=== PATIENT | female | born 1985 | race Caucasian/White ===

== ENCOUNTER 2019-02-11 18:05 | Emergency (ER) | payer SELFPAY ==
[2019-02-11] MEDS ORDERED: ONDANSETRON INJ 4 MG/2 ML VIAL IV ONE (18:36)
[2019-02-11] MEDS ORDERED: SODIUM CHLORIDE 0.9% 1000ML 1,000 ML IVS ONE ×2 (18:36→20:19)
--- NOTE | 2019-02-11 18:41 | ED.PDOC ---
History of Present Illness - General Chief Complaint: [employer] Problem Stated Complaint: vag bleeding Time Seen by Provider: 02/11/19 18:34 Source: patient Exam Limitations: no limitations - History of Present Illness Initial Comments: pt had onset of heavy vag bleeding with abd cramps this am. She had spotting onset 3 days ago. Her LMP was early January and has had a quant HCG 3 days ago of 9100. She had an OB sono 5 days ago in [facility] that showed no IUP Timing/Duration: this morning Quality: severe Onset Location: suprapubic Radiation: none Activites at Onset: none Prior abdominal problems: none Improving Factors: nothing Worsening Factors: movement Associated Symptoms: lower back pain, nausea/vomiting, other - dizziness Allergies/Adverse Reactions: Allergies Hydrocodone Allergy (Intermediate, Verified 02/11/19 18:29) Nausea Betamethasone [From Celestone Soluspan] Allergy (Verified 02/11/19 18:29) Other Causes itching and cold sweats Review of Systems - Review of Systems Constitutional: States: weakness EENTM: States: no symptoms reported Respiratory: States: no symptoms reported Cardiology: States: no symptoms reported Gastrointestinal/Abdominal: States: abdominal pain, nausea, vomiting Genitourinary: States: see HPI. Denies: dysuria Musculoskeletal: States: no symptoms reported Skin: States: no symptoms reported Neurological: States: no symptoms reported Endocrine: States: no symptoms reported Past Medical History (General) - Patient Medical History Hx Stroke: No Hx Asthma: Yes Hx Congestive Heart Failure: No Hx Diabetes: No Hx Renal Disease: No Hx MRSA: No Surgical History: appendectomy, other - Vaccination History Hx Influenza Vaccination: Yes - 2018 Hx Pneumococcal Vaccination: No - Social History Hx Tobacco Use: Yes Hx Alcohol Use: No Hx Depression: Yes - Female History Patient is a Female of Child Bearing Age (10 -59 yrs old): Yes - G5, P2, AB1 Hx Last Menstrual Period: 10/17/13 Patient : Yes - Active vaginal bleeding Expected Date of Delivery:: 07/24/14 Family Medical History - Family History Mother Family History: No Known Name: Corina Age (years): 50 Living Status: Still Living Hx Family Asthma: Yes Father Name: katerina Age (years): 60 Living Status: Still Living Hx Family Diabetes: Yes - Type 2 Sister Living Status: Still Living Hx Family Asthma: Yes Physical Exam - Physical Exam General Appearance: Alert, Obvious distress Eyes, Ears, Nose, Throat Exam: PERRL/EOMI Neck: supple, normal inspection Cardiovascular/Respiratory: regular rate, rhythm, normal breath sounds Gastrointestinal/Abdominal: normal bowel sounds Extremity: no pedal edema Neurologic: alert, normal mood/affect, oriented x 3 Skin Exam: warm/dry, pallor Lymphatic: no adenopathy Departure - Departure Clinical Impression: Vagina bleeding Qualifiers: Weeks of gestation: unspecified Qualified Code(s): Z34.90 - Encounter for supervision of normal , unspecified, unspecified trimester Disposition: Transfer to Hospital Departure Forms: ED Discharge - Pt. Copy, Patient Portal Self Enrollment Referrals: Clemencia Perez FNP [Primary Care Provider] - 1-2 Weeks Transfer to Outside Facility - Transfer Information Accepting Facility: [facility] Reason for Transfer: specialized care not available - Dr Beyer accepted pt in transfer to r/o ectopic
[2019-02-11] MEDS ORDERED: MORPHINE SULFATE INJ 10 MG/ML VIAL IV ONE ×2 (19:16→20:20)
[2019-02-11 20:44] VITALS: O2SAT 98
[2019-02-11 21:18] VITALS: BP 111/64; TEMP 98.4
== END 2019-02-11 21:18 | disposition short-term general hospital (02) ==
LOC: ER 18:05
DX: O26.859 Spotting complicating pregnancy, unspecified trimester (principal); O99.89 Other specified diseases and conditions complicating pregnancy, childbirth and the puerperium; R10.30 Lower abdominal pain, unspecified; M54.5 Low back pain; R42 Dizziness and giddiness; O21.9 Vomiting of pregnancy, unspecified; O99.519 Diseases of the respiratory system complicating pregnancy, unspecified trimester; J45.909 Unspecified asthma, uncomplicated; Z3A.00 Weeks of gestation of pregnancy not specified; Z88.8 Allergy status to other drugs, medicaments and biological substances; Z88.5 Allergy status to narcotic agent; Z90.49 Acquired absence of other specified parts of digestive tract
CPT/HCPCS: 36415; 80053; 84702; 85025; J2270; J2405; J7030